=== PATIENT | male | born 1950 | race Caucasian/White ===

== ENCOUNTER → 2017-08-20 | Outpatient (CLI) | payer MEDICARE ==
--- NOTE | 2017-08-20 10:05 | XR ---
EXAMINATION TYPE: XR abdomen 2V DATE OF EXAM: 08/20/2017 CLINICAL DATA: 67-year-old male epigastric pain since last night, [facility] COMPARISON: None FINDINGS: Lung bases are clear. No evidence for free intraperitoneal air. No dilated small bowel or air-fluid levels. Scattered air and stool seen throughout the colon extendi ng distally into the rectum. Mild stool burden. No suspicious calcifications identified. Prominent bony overlap at the lumbosacral junction could reflect underlying anterolisthesis. IMPRESSION: 1. Mild stool burden. No evidence of bowel obstruction or free intraperitoneal air. 2. Bony overlap at the lumbosacral junction could reflect underlying L5-S1 anterolisthesis.
== END | disposition home or self-care (01) ==
LOC: RADXRYALE 09:18
PROVIDERS: ATTEND Physician Assistant Medical
DX: R19.5 Other fecal abnormalities (principal); R10.13 Epigastric pain
CPT/HCPCS: 74020

== ENCOUNTER 2020-08-18 09:11 | Day surgery (SDC) | payer MEDICARE ==
[2020-08-16 13:22] VITALS: BMI 30.1
[~2020-08-18 09:11] MED LIST: LACTATED RINGERS 1,000 ML IV SCH
[2020-08-18 09:46] VITALS: RESP 18; TEMP 98.2
[2020-08-18] MEDS ORDERED: SODIUM CHLORIDE 0.9% 1,000 ML IV SCH (10:00)
[2020-08-18] MEDS ORDERED: PROPOFOL 10 MG/ML 20 ML VIAL IV ONE (12:11)
--- NOTE | 2020-08-18 12:34 | P.EPPROC ---
- EP Procedure Note Electrophysiology Procedure Note: Procedure Electrical cardioversion for atrial fibrillation, after 2 weeks of oral amiodarone Diagnosis Persistent atrial fibrillation with RVR associated with Cardiomyopathy Details Successful electrical cardioversion under conscious sedation, 360 J biphasic shock in the AP configuration Patient converted to sinus rhythm Plan Continue ELIQUIS 5 mg twice daily Continue amiodarone 400 mg per day for 2 more weeks and then reduce to 200 mg by mouth daily Continue metoprolol succinate 75 mg by mouth daily Follow-up with Dr. Bedoya in about 2-3 weeks
--- NOTE | 2020-08-18 12:35 | P.PRLE ---
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 Currently he is on amiodarone 400 mg by mouth daily He underwent successful electrical cardioversion Hopefully this resulted in improvement of his LV function. I have asked him to continue oral amiodarone and metoprolol as well as ELIQUIS Thank you for entrusting me with the care of the patient Warm regards Sincerely Paul Bedoya
[2020-08-18 14:06] VITALS: BP 102/64; PULSE 56
== END 2020-08-18 13:47 | disposition home or self-care (01) ==
LOC: CATHEP 09:11
PROVIDERS: ATTEND Internal Medicine Clinical Cardiac Electrophysiology
DX: I48.19 Other persistent atrial fibrillation (principal); I42.0 Dilated cardiomyopathy; I12.9 Hypertensive chronic kidney disease with stage 1 through stage 4 chronic kidney disease, or unspecified chronic kidney disease; N18.30 Chronic kidney disease, stage 3 unspecified; Z79.899 Other long term (current) drug therapy; Z79.01 Long term (current) use of anticoagulants
CPT/HCPCS: 92960; 84132; J2704

== ENCOUNTER 2020-09-15 08:40 | Day surgery (SDC) | payer MEDICARE ==
[2020-09-14 09:11] VITALS: BMI 30.1
[2020-09-15] MEDS: SODIUM CHLORIDE 0.9% 1,000 ML IV SCH (09:37)
[2020-09-15] MEDS ORDERED: LIDOCAINE 1% INJ 10MG/ML (20 ML MDV) ONE ×2 (11:57→12:25)
[2020-09-15] MEDS ORDERED: PHENYLEPHRINE 10 MG/ML VIAL ONE (12:25)
[2020-09-15] MEDS ORDERED: PROTAMINE SULFATE 10 MG/ML 5 ML VIAL IV ONE ×2 (12:25→16:56)
[2020-09-15] MEDS ORDERED: ISOPROTERENOL 250 MCG/1.25 ML SYR IV ONE (12:25)
[2020-09-15] MEDS ORDERED: MIDAZOLAM 2 MG/2 ML VIAL ONE (12:25)
[2020-09-15] MEDS ORDERED: PROPOFOL 10 MG/ML 20 ML VIAL IV ONE (12:25)
[2020-09-15] MEDS ORDERED: ePHEDrine SULFATE/0.9% NACL/PF 50 MG/5 ML SYRINGE IV ONE (12:25)
[2020-09-15] MEDS ORDERED: SUCCINYLCHOLINE CHLORIDE 100 MG/5 ML SYR IV ONE (12:25)
[2020-09-15] MEDS ORDERED: HEPARIN SODIUM,PORCINE 10,000 UNIT/ML 1 ML VIAL ONE (12:25)
[2020-09-15] MEDS ORDERED: fentaNYL (PF) 50 MCG/ML 2 ML AMP ONE (12:25)
[2020-09-15] MEDS ORDERED: FUROSEMIDE 10 MG/ML 2 ML VIAL ONE (12:25)
[2020-09-15] MEDS ORDERED: HEPARIN SOD,PORK IN 0.45% NACL 25,000 UNIT in 0.45% NACL 1 250ML.BAG IV ONE (13:17)
[2020-09-15] MEDS ORDERED: HEPARIN SODIUM (1,000 UNIT/ML) 1,000 UNIT in SODIUM CHLORIDE 0.9% 1,000 ML IRRIGATION ONE (13:17)
[2020-09-15] MEDS ORDERED: LIDOCAINE 1% INJ 10MG/ML (20 ML MDV) SQ ONE (13:31)
[2020-09-15] MEDS ORDERED: LACTATED RINGERS 1,000 ML IV ONE (16:47)
[2020-09-15] MEDS ORDERED: IOPAMIDOL-370 100ML BTL INJ ONE (16:56)
[2020-09-15] MEDS ORDERED: ACETAMINOPHEN TAB 325 MG TAB PO PRN (17:20)
[2020-09-15] MEDS ORDERED: HYDROcodone/APAP 5-325MG 1 EACH TAB PO PRN (17:20)
--- NOTE | 2020-09-15 17:39 | P.EPPROC ---
- EP Procedure Note Electrophysiology Procedure Note: Diagnosis Persistent Atrial fibrillation, symptomatic, tachycardia 4/atrial fibrillation mediated cardio myopathy Result No left atrial appendage mass seen on intracardiac echo Successful A. fib ablation/pulmonary vein isolation of all veins using cryo- ablation Complete entrance block in all 4 veins confirmed Linear ablation left atrial roof, narrow channel noted along the posterior wall between the successfully isolated pulmonary veins, 2.3 cm roofline Linear ablation left atrial septum along significantly fractionated electrograms, from the roof down to 6 o'clock position in the right inferior vein Atrial fibrillation could not be induced on high-dose Isuprel and burst stimulation from multiple sites in the atria and coronary sinus No evidence for phrenic nerve injury Esophageal deflection YES Electrical cardioversion with a synchronized shock across the chest NO Procedure details Patient was brought to the EP lab in a fasting state. Written informed consent was obtained prior to the procedure. Procedure performed under general anesthesia After initial muscle relaxant use, muscle relaxants were not given thereafter in order to assess phrenic nerve during procedure. Patient prepped and draped as per protocol Full cryo-set up with standard preparation of the cryoablation tools done. Femoral Venous access obtained on the right and left groins Venous and arterial Sheaths placed. Diagnostic catheters for the high right atrium, phrenic nerve stimulation and pacing, His bundle, RV and coronary sinus placed Intracardiac echo catheter placed. Long sheath placed in the right atrium Left and right transseptal catheterization performed under intracardiac echo guidance. Intravenous heparin with aCT above 300 Later, catheter positioning and balloon positioning in the left atrium, under intracardiac echo guidance Diagnostic EP study with Drug infusion Coronary sinus pacing and recording Baseline measurements Sinus cycle length 1134 ms, SD interval 158, QRS 97 and daily 580 ms AH 54 and HV 43 ms Atrial pacing performed from the high right atrium and the coronary sinus Burst stimulation from the high right atrium Burst stimulation from 2 sites in the coronary sinus both on and off high-dose Isuprel Transseptal catheterization performed RA pressure 10/3/6 LA pressure 17/6/8 Transseptal catheterization performed with standard sheath. The cryoablation sheath was then placed with an over the wire exchange without any acute complications. All 4 pulmonary veins were isolated in the following sequence: Left superior followed by left inferior followed by right superior followed by right inferior The cryo-ablation balloon was placed at the os of each vein 1.5 mL of IV dye was injected to confirm an occluded vein Goal during cryoablation was to achieve complete occlusion of the pulmonary vein, achieve -30 degrees C at 30 seconds and achieve -40 degrees C at 60 seconds and a time to effect of less than 60-90 seconds, . If not the balloon was repositioned to obtain this result After completion of Cryoblation with durations from 180-240 seconds, entrance block was confirmed with the Attain circular catheter in a roving fashion around the antrum of the pulmonary veins Phrenic nerve pacing was performed from the SVC, right innominate vein area and diaphragm voltage was monitored. Diaphragmatic contractions were also monitored manually for strength of contraction. Parameter goals for each cryo freeze Complete occlusion of the appropriate vein -30 degrees C by 30 seconds -40 degrees C by 60 seconds Minimum between minus 40-55 degrees C Thaw time greater than 10 seconds Balloon visualized by intracardiac echo The esophagus was intubated. Esophageal Temperature monitoring with a CIRCA catheter formed. Esophageal deflection for hypothermia of the esophagus below 30 degrees C Left superior pulmonary vein Complete isolation, entrance block Left inferior pulmonary vein Complete isolation, entrance block Right superior pulmonary vein, during phrenic nerve pacing Complete isolation, entrance block Right inferior pulmonary vein, during phrenic nerve pacing Complete isolation, entrance block At the end of the procedure the Achieve catheter was once again used to check for entrance block Phrenic nerve stimulation was performed to confirm diaphragmatic stimulation the end of the procedure Cine fluoroscopy was performed at the very end of the procedure to confirm movement of both diaphragms with inspiration and expiration At the end of the procedure the patient was extubated Heparin was reversed Venous sheaths were removed and hemostasis assured Procedures performed (PVI plus linear ablation) Diagnostic EP study CS pacing and recording Left and right transseptal catheterization 3D mapping) Intracardiac echocardiography Pulmonary vein isolation with transseptal and comprehensive EPS, [id number] Left atrial roof line, +[id number] Linear ablation, septum, left atrium, +[id number] Drug Infusion +[id number]
--- NOTE | 2020-09-15 17:40 | P.PRLE ---
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
[2020-09-15] MEDS ORDERED: ACETAMINOPHEN IV (For NPO) 1,000 MG in EMPTY BAG 1 BAG IVPB ONE (19:00)
[2020-09-15] MEDS ORDERED: lisinopriL 5 MG TAB PO SCH (21:00)
[2020-09-15] MEDS: APIXABAN 5 MG TAB PO SCH (23:06)
[2020-09-16] MEDS: SODIUM CHLORIDE 0.9% 1,000 ML IV SCH (05:26)
[2020-09-16] MEDS: APIXABAN 5 MG TAB PO SCH (08:54)
[2020-09-16] MEDS ORDERED: SPIRONOLACTONE 25 MG TAB PO SCH (09:00)
[2020-09-16] MEDS ORDERED: METOPROLOL SUCCINATE (ER) 25 MG TAB.ER.24H PO SCH (09:00)
[2020-09-16] MEDS ORDERED: ASPIRIN 81 MG PO SCH (09:00)
[2020-09-16 10:37] VITALS: TEMP 98.1
--- NOTE | 2020-09-16 10:59 | DS ---
DISCHARGE SUMMARY A 70-year-old male patient with persistent atrial fibrillation that was associated with cardiomyopathy. He was brought in for an atrial fibrillation ablation. He underwent pulmonary vein isolation as well as linear ablation of the septum and the roof of the left atrium. Thereafter, despite high-dose Isuprel and burst stimulation from multiple sites in the atria and coronary sinus, atrial fibrillation could not be induced. He is currently on 100 mg of amiodarone. LV function was normal by intracardiac echo. He has a little bit of a sore throat with very mild discomfort in the chest, but no real pleuritic chest discomfort, just a vague sensation in the mid chest which is extremely mild. The EKG is normal. Lungs are clear. No rhonchi, no crackles. Heart sounds, S1, S2 are normal, no murmurs or gallops. No rub. Abdomen is soft. Extremities are warm, no edema. Groins have healed well. There is no hematoma, no swelling. IMPRESSION: 1. Persistent atrial fibrillation. 2. Atrial fibrillation related cardiomyopathy. 3. Status post atrial fibrillation ablation with pulmonary vein isolation, linear ablation of the roof and the left atrial septum. PLAN: 1. Discharge home today if stable by around 1:00. 2. Stop amiodarone completely. 3. Continue all other cardiac medications including Eliquis. I emphasized the importance of continuing Eliquis to the patient to reduce risk of stroke postprocedure. I will see him again in about 2 weeks. 4. MMODL / IJN: [id number] /
[2020-09-16 12:32] VITALS: BP 99/61; PULSE 66; RESP 16
== END 2020-09-16 12:44 | disposition home or self-care (01) ==
LOC: CATHEP 08:40 → 1SOBS 18:16 → CATHEP 09-16 12:44
PROVIDERS: ATTEND Internal Medicine Clinical Cardiac Electrophysiology
DX: I48.19 Other persistent atrial fibrillation (principal); I42.8 Other cardiomyopathies; I10 Essential (primary) hypertension; I42.0 Dilated cardiomyopathy; Z79.01 Long term (current) use of anticoagulants; Z79.899 Other long term (current) drug therapy
CPT/HCPCS: 93623; 93662; 93613; 93656; 93657; 85347; C1769 ×4; C1894 ×2; C1730 ×2; C1759; C1893; C1733; C1766; C1732; J2250; J2720; J1644 ×3; J1940; J2370; J2001; J3010; J0330; J2704; Q9967